=== PATIENT | male | born 1975 | race Caucasian/White ===

== ENCOUNTER → 2017-04-28 | Emergency (ER) | payer MEDICARE, MEDICAID ==
[~2017-04-28] VITALS: Ht 185.4 cm; Wt 79.4 kg
[~2017-04-28] MED LIST: ACHD5005 PO; NS IV 1000 ML 1,000 ML IV SCH; ONDANSETRON 4 MG/2 ML (SDV) Z0FRAN IVP ONE
--- NOTE | 2017-04-28 14:16 | ED General ---
General Chief Complaint: Neurological Problems Stated Complaint: NOT EATING/DRINKING/ WEAKNESS Nursing Triage Note: pt reports being stuck in bed x 8 days because he refused to let anyone help him. has in home care that has been placed on hold for two weeks but is scheduled to restart on monday. pt has had no food or drink. Nursing Sepsis Screen: No Definite Risk Source of Information: Patient Exam Limitations: No Limitations History of Present Illness Time Seen by Provider: 14:12 Initial Comments This 42-year-old male presents after having been in bed for the last 8 days. The patient declined help from his caregivers and remained in bed. Patient has developed bedsores secondary to this prolonged immobilization. The patient had no significant oral intake during this week period of time. He denies headache or stiff neck, he has had no palpitations or shortness of breath, he's had no vomiting, diarrhea, or dysuria. Past medical history of significance includes previous electrocution which left the patient quadriplegic. Allergies and Home Medications Allergies Coded Allergies: No Known Drug Allergies (Unverified , 05/02/12) Home Medications Hydrocodone Bit/Acetaminophen 1 Each Tablet, 1-2 EACH PO Q6H PRN, #14 Ref 0 Prescribed by: KAYLA STEVENSON on 05/02/12 1721 Constitutional: No chills EENTM: No ear pain, No vision loss Respiratory: No cough Cardiovascular: No chest pain Gastrointestinal: No diarrhea, No vomiting Genitourinary: No dysuria Musculoskeletal: No joint pain Skin: other (pressure sores.) Psychiatric/Neurological: No Symptoms Reported Hematologic/Lymphatic: No Symptoms Reported, Anemia Immunological/Allergic: no symptoms reported Past Bwzswaz-[id number] Hx Patient Social History Recent Foreign Travel: No Contact w/Someone Who Travel: No Recent Infectious Disease Expo: No Surgeries HX Surgeries: Yes (EXPERIMENTAL FOR MUSCLE SPASISCITY(BACLOFEN PUMP)) Respiratory Hx Respiratory Disorders: No Cardiovascular Hx Cardiac Disorders: No Neurological Hx Neurological Disorders: Yes Reproductive System Hx Reproductive Disorders: No Sexually Transmitted Disease: No Genitourinary Hx Genitourinary Disorders: No Gastrointestinal Hx Gastrointestinal Disorders: No Musculoskeletal Hx Musculoskeletal Disorders: Yes Musculoskeletal Disorders: Foot Drop, Spasms, Contracture Endocrine Hx Endocrine Disorders: No HEENT HX ENT Disorders: No Cancer Hx Cancer: No Psychosocial Hx Psychiatric Problems: No Integumentary HX 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) Blood Transfusions Hx Blood Disorders: No Adverse Reaction to a Blood Tr: No Reviewed Nursing Assessment Reviewed/Agree w Nursing PMH: Yes Family Medical History Family Medial History: Cancer 19 FATHER, Onset:Unknown 19 MOTHER, Onset:Unknown Physical Exam Vital Signs Vital Sign - Last 12Hours 04/28/17 13:32 Temp 97.4 Pulse 123 Resp 18 B/P (MAP) 140/101 Pulse Ox 97 O2 Delivery Room Air Capillary Refill : Less Than 3 Seconds General Appearance: Chronically ill Eyes: Bilateral Eye Normal Inspection HEENT: Normal ENT Inspection Neck: Normal Inspection Respiratory: Lungs Clear, Normal Breath Sounds Cardiovascular: Regular Rate, Rhythm, No Murmur Gastrointestinal: Normal Bowel Sounds Back: Normal Inspection Extremity: Normal Inspection Neurologic/Psychiatric: Alert, Oriented x3, No Motor/Sensory Deficits, Motor Weakness (patient demonstrates profound motor weakness of his 4 extremities. There is associated diminished sensation from the previous electrocution.) Skin: Normal Color, Warm/Dry, Other (pressure sores.) Progress/Results/Core Measures Results/Orders Lab Results Laboratory Tests Test 04/28/17 13:47 04/28/17 16:55 Range/Units White Blood Count 11.1 H 4.3-11.0 10^3/uL Red Blood Count 6.35 H 4.35-5.85 10^6/uL Hemoglobin 19.0 H 13.3-17.7 G/DL Hematocrit 54 40-54 % Mean Corpuscular Volume 85 80-99 FL Mean Corpuscular Hemoglobin 30 25-34 PG Mean Corpuscular Hemoglobin Concent 35 32-36 G/DL Red Cell Distribution Width 13.7 10.0-14.5 % Platelet Count 342 130-400 10^3/uL Mean Platelet Volume 11.1 H 7.4-10.4 FL Neutrophils (%) (Auto) 69 42-75 % Lymphocytes (%) (Auto) 20 12-44 % Monocytes (%) (Auto) 9 0-12 % Eosinophils (%) (Auto) 1 0-10 % Basophils (%) (Auto) 1 0-10 % Neutrophils # (Auto) 7.6 1.8-7.8 X 10^3 Lymphocytes # (Auto) 2.3 1.0-4.0 X 10^3 Monocytes # (Auto) 1.0 0.0-1.0 X 10^3 Eosinophils # (Auto) 0.1 0.0-0.3 10^3/uL Basophils # (Auto) 0.1 0.0-0.1 10^3/uL Prothrombin Time 12.6 12.2-14.7 SEC INR Comment 1.0 0.8-1.4 Sodium Level 140 135-145 MMOL/L Potassium Level 2.8 L 3.6-5.0 MMOL/L Chloride Level 100 98-107 MMOL/L Carbon Dioxide Level 16 L 21-32 MMOL/L Anion Gap 24 H 5-14 MMOL/L Blood Urea Nitrogen 16 7-18 MG/DL Creatinine 1.45 H 0.60-1.30 MG/DL Estimat Glomerular Filtration Rate 53 BUN/Creatinine Ratio 11 0-20 Glucose Level 250 H 70-105 MG/DL Calcium Level 10.3 H 8.5-10.1 MG/DL Total Bilirubin 1.2 H 0.1-1.0 MG/DL Aspartate Amino Transf (AST/SGOT) 22 5-34 U/L Alanine Aminotransferase (ALT/SGPT) 19 0-55 U/L Alkaline Phosphatase 85 40-136 U/L Total Creatine Kinase 247 H 30-200 U/L Total Protein 8.6 H 6.4-8.2 GM/DL Albumin 4.6 H 3.2-4.5 GM/DL Urine Color YELLOW Urine Clarity CLEAR Urine pH 6 5-9 Urine Specific [place] 1.010 L 1.016-1.022 Urine Protein 2+ H NEGATIVE Urine Glucose (UA) 4+ H NEGATIVE Urine Ketones 3+ H NEGATIVE Urine Nitrite NEGATIVE NEGATIVE Urine Bilirubin NEGATIVE NEGATIVE Urine Urobilinogen NORMAL NORMAL MG/DL Urine Leukocyte Esterase NEGATIVE NEGATIVE Urine RBC (Auto) 3+ H NEGATIVE Urine RBC 2-5 H /HPF Urine WBC NONE /HPF Urine Squamous Epithelial Cells RARE /HPF Urine Crystals NONE /LPF Urine Bacteria NEGATIVE /HPF Urine Casts PRESENT /LPF Urine Hyaline Casts 5-10 H /LPF Urine Mucus NEGATIVE /LPF Urine Culture Indicated NO My Orders Orders - KATHLEEN MAYER MD Creatine Kinase (04/28/17 13:41) Cbc With Automated Diff (04/28/17 13:41) Comprehensive Metabolic Panel (04/28/17 13:41) Ua Culture If Indicated (04/28/17 13:41) Ekg Tracing (04/28/17 13:43) Ns Iv 1000 Ml (Sodium Chloride 0.9%) (04/28/17 13:45) Protime With Inr (04/28/17 13:49) Ondansetron Injection (Zofran Injectio (04/28/17 16:15) Ns Iv 1000 Ml (Sodium Chloride 0.9%) (04/28/17 16:15) Potassium Cl 10meq/50ml Ivpb (Kcl 10 Meq (04/28/17 16:15) Medications Given in ED Current Medications Medications Dose Ordered Sig/Mirna Route Start Time Stop Time Status Last Admin Dose Admin Ondansetron HCl 4 mg ONCE ONCE IVP 04/28/17 16:15 04/28/17 16:16 DC 04/28/17 16:47 4 MG Vital Signs/I&O Vital Sign - Last 12Hours 04/28/17 13:32 Temp 97.4 Pulse 123 Resp 18 B/P (MAP) 140/101 Pulse Ox 97 O2 Delivery Room Air Blood Pressure Mean: 114 Progress Note : Time: 17:32 Progress Note Patient had an episode of emesis after he briskly ingested 4 large glasses of water. Patient's laboratory evaluation demonstrated only moderate elevation of his CPK. His electrolytes were unremarkable other than potassium of 2.8. Abdomen the patient received his initial 2 L of normal saline and additional liter of normal saline with 20 mEq of potassium was given to the patient IV. He was given 4 mg Zofran. He had no further vomiting. Departure Impression Impression: Primary Impression: Prolonged immobilization Disposition: 01 HOME, SELF-CARE Condition: Improved Departure-Patient Inst. Decision time for Depature: 17:34 Referrals: NO,LOCAL PHYSICIAN (PCP) Primary Care Physician Add. Discharge Instructions: Encourage fluids over the weekend. Avoid prolonged positioning overpressure areas. Come back for any problems or questions. All discharge instructions reviewed with patient and/or family. Voiced understanding. KATHLEEN MAYER MD Apr 28, 2017 14:16
[2017-04-28 14:58] LABS: BASOPHILS # (AUTO) 0.1 10^3/uL (0.0-0.1); BASOPHILS % (AUTO) 1 % (0-10); EOSINOPHILS # (AUTO) 0.1 10^3/uL (0.0-0.3); EOSINOPHILS % (AUTO) 1 % (0-10); LYMPHOCYTES # (AUTO) 2.3 X 10^3 (1.0-4.0); LYMPHOCYTES % (AUTO) 20 % (12-44); MEAN CORPUSCULAR HEMOGLOBIN 30 PG (25-34); MEAN CORPUSCULAR HGB CONC 35 G/DL (32-36); MEAN CORPUSCULAR VOLUME 85 FL (80-99); MEAN PLATELET VOLUME 11.1 FL (7.4-10.4); MONOCYTES % (AUTO) 9 % (0-12); NEUTROPHILS # (AUTO) 7.6 X 10^3 (1.8-7.8); NEUTROPHILS % (AUTO) 69 % (42-75); PLATELET COUNT 342 10^3/uL (130-400); RED BLOOD COUNT 6.35 10^6/uL (4.35-5.85); RED CELL DISTRIBUTION WIDTH 13.7 % (10.0-14.5); WHITE BLOOD COUNT 11.1 10^3/uL (4.3-11.0)
[2017-04-28 15:07] LABS: PROTHROMBIN TIME PATIENT 12.6 SEC (12.2-14.7)
[2017-04-28 15:21] LABS: ALBUMIN 4.6 GM/DL (3.2-4.5); BILIRUBIN,TOTAL 1.2 MG/DL (0.1-1.0); CALCIUM 10.3 MG/DL (8.5-10.1); CREATININE SERUM 1.45 MG/DL (0.60-1.30); ICTERUS 0.9 (-100-1.9); POTASSIUM 2.8 MMOL/L (3.6-5.0); TOTAL PROTEIN 8.6 GM/DL (6.4-8.2)
[2017-04-28] MEDS: POTASSIUM CL 10MEQ/50ML IVPB 50 ML IV SCH ×2 (16:48→17:48)
[2017-04-28 17:00] LABS: BILIRUBIN,URINE NEGATIVE (NEGATIVE); KETONES,URINE 3+ (NEGATIVE); LEUKOCYTE ESTERASE ,URINE NEGATIVE (NEGATIVE); NITRITE,URINE NEGATIVE (NEGATIVE); PH,URINE 6 (5-9); PROTEIN,URINE 2+ (NEGATIVE); UROBILINOGEN,URINE NORMAL (NORMAL)
[2017-04-28 17:15] LABS: SQUAMOUS EPITHELIAL CELL,UR RARE /HPF
[2017-04-28 19:05] VITALS: BP 124/85
== END | disposition home or self-care (01) ==
LOC: EDUNIT# 13:22 → ER 13:25
DX: M62.3 Immobility syndrome (paraplegic) (principal)
CPT/HCPCS: 36415; 80053; 81000; 82550; 85025; 85610; 93005